=== PATIENT | female | born 1960 | race Caucasian/White ===

== ENCOUNTER 2018-01-05 22:54 | Inpatient (IN) | payer MEDICARE, MEDICAID ==
[~2018-01-05] VITALS: Ht 172.7 cm; Wt 100.0 kg
[2018-01-05] MEDS ORDERED: piperacillin/tazo 3.375gm/50ml 50 ML IV ONE (23:10)
[2018-01-05] MEDS ORDERED: normal saline 1000ML IV soln IV ONE (23:10)
[2018-01-06 00:33] LABS: INR 1.1 INR; PARTIAL THROMBOPLASTIN TIME 24 SECONDS (22-32); PROTHROMBIN TIME 11.4 SECONDS (9.0-12.0)
[2018-01-06 00:34] LABS: ALANINE AMINOTRANSFERASE 43 U/L (12-78); ALBUMIN 3.1 G/DL (3.4-5.0); ALBUMIN/GLOBULIN RATIO 0.9 (1.1-1.5); ALKALINE PHOSPHATASE 104 IU/L (46-116); ANION GAP 12 (8-16); ASPARTATE AMINO TRANSFERASE 69 U/L (10-37); BILIRUBIN,TOTAL 0.3 MG/DL (0.1-1.0); BLOOD UREA NITROGEN 9 MG/DL (7-18); BUN/CREATININE RATIO 13.2 (6.6-38.0); CALCIUM 7.8 MG/DL (8.5-10.1); CHLORIDE 110 MMOL/L (99-107); CREATININE 0.68 MG/DL (0.40-0.90); GLUCOSE 129 MG/DL (70-104); MAGNESIUM 1.7 MG/DL (1.5-2.4); POTASSIUM 3.4 MMOL/L (3.5-5.1); SODIUM 145 MMOL/L (135-145); TOTAL CARBON DIOXIDE 23.5 MMOL/L (24-32); TOTAL PROTEIN 6.7 G/DL (6.4-8.2); eGFR 90 ML/MIN
[2018-01-06 00:35] LABS: BASOPHILS % (AUTO) 0.3 % (0-1); EOSINOPHILS % (AUTO) 0 % (0-6); HEMATOCRIT 56.6 % (35.0-45.0); LYMPHOCYTES % (AUTO) 7.3 % (21-51); MEAN CORPUSCULAR HEMOGLOBIN 30.8 PG (27.0-31.0); MEAN CORPUSCULAR HGB CONC 32.6 % (33.0-36.5); MEAN CORPUSCULAR VOLUME 94.6 FL (78-98); MEAN PLATELET VOLUME 10.2 FL (7.4-10.4); MONOCYTES # (AUTO) 0.2 X10'3 (0-0.9); MONOCYTES % (AUTO) 1.4 % (2-12); NEUTROPHILS # (AUTO) 12.6 X10'3 (1.8-7.7); PLATELET COUNT 197 X10'3 (140-440); RED BLOOD COUNT 5.99 X10'6 (4.20-5.60); RED CELL DISTRIBUTION WIDTH 15.3 % (11.5-14.5); WHITE BLOOD COUNT 13.8 X10'3 (4.5-11.0)
[2018-01-06 00:39] LABS: HEMOGLOBIN 18.5 g/dl (12.0-16.0)
[2018-01-06 01:43] LABS: CLARITY,URINE CLEAR (Clear); COLOR,URINE YELLOW (Yellow); GLUCOSE, URINE NEGATIVE (Neg); KETONES,URINE 40 mg/dl (Neg); LEUKOCYTE ESTERASE ,URINE SMALL (Neg); NITRITES, URINE NEGATIVE (Neg); OCCULT BLOOD,URINE LARGE (Neg); PROTEIN,URINE NEGATIVE (Neg); UROBILINOGEN,URINE 0.2 E.U/dL (0.2-1.0)
[2018-01-06 01:45] LABS: URINE HCG NEGATIVE (NEG)
[2018-01-06 01:52] LABS: UA COLLECTION TYPE FOLEY CATH
[2018-01-06 01:54] LABS: BACTERIA,URINE NONE SEEN /HPF (Neg); HYALINE CASTS 0-3 /LPF (NEGATIVE); MUCUS STRANDS NONE SEEN /LPF (Neg); RBC,URINE 50-100 /HPF (0-2); SQUAMOUS EPITHELIAL CELL,UR NONE SEEN /LPF (FEW); WBC,URINE 20-30 /HPF (0-4)
[2018-01-06] MEDS ORDERED: ASPI-1265 PO (02:51)
[2018-01-06] MEDS: normal saline 1000ml 1,000 ML IV SCH ×3 (03:00→23:21)
[2018-01-06] MEDS ORDERED: CITA-278 PO (03:15)
[2018-01-06] MEDS ORDERED: DIPH25CA83 PO (03:15)
[2018-01-06] MEDS ORDERED: MONT10TA21 PO (03:15)
[2018-01-06] MEDS ORDERED: HYDR-565 PO (03:15)
[2018-01-06] MEDS ORDERED: MULT1TAB74 PO (03:15)
[2018-01-06] MEDS ORDERED: POTA10CA44 PO (03:15)
[2018-01-06] MEDS ORDERED: FURO-150 PO (03:15)
[2018-01-06] MEDS ORDERED: ROSU20TA PO (03:15)
[2018-01-06] MEDS ORDERED: VITA400C65 (03:15)
[2018-01-06] MEDS ORDERED: MAGN296S50 PO (03:15)
[2018-01-06] MEDS ORDERED: OXYB5TAB11 PO (03:15)
[2018-01-06] MEDS ORDERED: ZIPR80CA2 PO (03:15)
[2018-01-06] MEDS ORDERED: BENZ1TAB7 PO (03:15)
[2018-01-06] MEDS ORDERED: POTA10TA10 PO (03:15)
[2018-01-06] MEDS ORDERED: CHOL100046 PO (03:15)
[2018-01-06] MEDS ORDERED: magnesium hydroxide 30ml (MOM) UD suspension PO PRN (03:25)
[2018-01-06] MEDS ORDERED: acetaminophen 325mg tablet PO PRN (03:25)
[2018-01-06] MEDS ORDERED: ondansetron/PF 4mg/2ml inj IV PRN (03:25)
[2018-01-06] MEDS ORDERED: mag hydrox/Alum hydrox/simeth 30ml oral suspension PO PRN (03:25)
[2018-01-06] MEDS ORDERED: HYDROcodone/acetaminophen 10/325mg tab PO PRN (03:30)
[2018-01-06 04:40] VITALS: BP 142/75
[2018-01-06] MEDS: aspirin 81mg tab.chew PO SCH (07:34)
[2018-01-06] MEDS: citalopram 20mg tablet PO SCH (07:34)
[2018-01-06] MEDS: montelukast 10mg tablet PO SCH (07:34)
[2018-01-06] MEDS: heparin, porcine 5000 units/ml vial SQ SCH ×2 (07:37→21:51)
[2018-01-06] MEDS ORDERED: ziprasidone 20mg capsule PO SCH (08:00)
[2018-01-06 08:09] VITALS: BP 137/68
[2018-01-06] MEDS ORDERED: potassium Cl 40MEQ/NS 500ml 500 ML IV PRN ×2 (08:30)
[2018-01-06] MEDS ORDERED: potassium Cl 20 mEq SR tablet PO PRN (08:30)
[2018-01-06] MEDS: potassium Cl 20 mEq SR tablet PO PRN ×3 (08:40→17:44)
[2018-01-06 10:03] LABS: BASOPHILS % (AUTO) 0 % (0-1); EOSINOPHILS % (AUTO) 0 % (0-6); HEMATOCRIT 51.5 % (35.0-45.0); HEMOGLOBIN 17.1 g/dl (12.0-16.0); LYMPHOCYTES # (AUTO) 1.3 X10'3 (1.1-4.8); LYMPHOCYTES % (AUTO) 10.1 % (21-51); MEAN CORPUSCULAR HGB CONC 33.3 % (33.0-36.5); MEAN CORPUSCULAR VOLUME 93.1 FL (78-98); MEAN PLATELET VOLUME 9.1 FL (7.4-10.4); MONOCYTES # (AUTO) 0.1 X10'3 (0-0.9); MONOCYTES % (AUTO) 0.4 % (2-12); NEUTROPHILS # (AUTO) 11.1 X10'3 (1.8-7.7); NEUTROPHILS % (AUTO) 89.5 % (42-75); PLATELET COUNT 187 X10'3 (140-440); RED BLOOD COUNT 5.53 X10'6 (4.20-5.60); RED CELL DISTRIBUTION WIDTH 15.6 % (11.5-14.5); WHITE BLOOD COUNT 12.4 X10'3 (4.5-11.0)
[2018-01-06 11:53] VITALS: BP 140/69
[2018-01-06] MEDS: CefTRIAXone/D5W-Rocephin 1gm 50 ML IV SCH (17:51)
[2018-01-06 20:00] VITALS: BP 144/74
[2018-01-06] MEDS: ziprasidone 20mg capsule PO SCH (21:30)
[2018-01-07] VITALS: BP 134/78
[2018-01-07 05:20] LABS: BASOPHILS % (AUTO) 0 % (0-1); EOSINOPHILS % (AUTO) 0 % (0-6); HEMATOCRIT 53.7 % (35.0-45.0); LYMPHOCYTES # (AUTO) 1.6 X10'3 (1.1-4.8); LYMPHOCYTES % (AUTO) 11.3 % (21-51); MEAN CORPUSCULAR HEMOGLOBIN 31.2 PG (27.0-31.0); MEAN CORPUSCULAR HGB CONC 33.5 % (33.0-36.5); MEAN CORPUSCULAR VOLUME 93.2 FL (78-98); MEAN PLATELET VOLUME 9.4 FL (7.4-10.4); MONOCYTES # (AUTO) 0.5 X10'3 (0-0.9); MONOCYTES % (AUTO) 3.5 % (2-12); NEUTROPHILS # (AUTO) 11.8 X10'3 (1.8-7.7); NEUTROPHILS % (AUTO) 85.2 % (42-75); PLATELET COUNT 194 X10'3 (140-440); RED BLOOD COUNT 5.77 X10'6 (4.20-5.60); RED CELL DISTRIBUTION WIDTH 15.6 % (11.5-14.5); WHITE BLOOD COUNT 13.8 X10'3 (4.5-11.0)
[2018-01-07 05:35] LABS: ALANINE AMINOTRANSFERASE 36 U/L (12-78); ALBUMIN/GLOBULIN RATIO 0.8 (1.1-1.5); ALKALINE PHOSPHATASE 92 IU/L (46-116); ANION GAP 14 (8-16); ASPARTATE AMINO TRANSFERASE 27 U/L (10-37); BILIRUBIN,TOTAL 0.6 MG/DL (0.1-1.0); BLOOD UREA NITROGEN 7 MG/DL (7-18); BUN/CREATININE RATIO 12.7 (6.6-38.0); CALCIUM 8.6 MG/DL (8.5-10.1); CHLORIDE 105 MMOL/L (99-107); CREATININE 0.55 MG/DL (0.40-0.90); GLUCOSE 79 MG/DL (70-104); MAGNESIUM 1.8 MG/DL (1.5-2.4); POTASSIUM 3.3 MMOL/L (3.5-5.1); SODIUM 140 MMOL/L (135-145); TOTAL CARBON DIOXIDE 21.4 MMOL/L (24-32); TOTAL PROTEIN 6.7 G/DL (6.4-8.2); eGFR > 90 ML/MIN
[2018-01-07 07:52] VITALS: BP 136/69
[2018-01-07] MEDS: ziprasidone 20mg capsule PO SCH ×2 (08:00→20:00)
[2018-01-07] MEDS: CefTRIAXone/D5W-Rocephin 1gm 50 ML IV SCH (08:02)
[2018-01-07] MEDS: montelukast 10mg tablet PO SCH (08:03)
[2018-01-07] MEDS: normal saline 1000ml 1,000 ML IV SCH ×3 (08:03→21:05)
[2018-01-07] MEDS: citalopram 20mg tablet PO SCH (08:03)
[2018-01-07] MEDS: aspirin 81mg tab.chew PO SCH (08:03)
[2018-01-07] MEDS: heparin, porcine 5000 units/ml vial SQ SCH ×2 (08:07→21:03)
[2018-01-07] MEDS ORDERED: normal saline 1000ml 1,000 ML IV ONE (09:00)
[2018-01-07] MEDS: potassium Cl 20 mEq SR tablet PO PRN ×3 (11:27→21:00)
[2018-01-07 11:30] VITALS: BP 113/78
[2018-01-07 13:11] LABS: BASOPHILS % (AUTO) 0.2 % (0-1); EOSINOPHILS % (AUTO) 0 % (0-6); HEMATOCRIT 52.1 % (35.0-45.0); HEMOGLOBIN 17.6 g/dl (12.0-16.0); LYMPHOCYTES # (AUTO) 1.3 X10'3 (1.1-4.8); LYMPHOCYTES % (AUTO) 9.6 % (21-51); MEAN CORPUSCULAR HEMOGLOBIN 31.4 PG (27.0-31.0); MEAN CORPUSCULAR HGB CONC 33.7 % (33.0-36.5); MEAN PLATELET VOLUME 9.8 FL (7.4-10.4); MONOCYTES # (AUTO) 0.5 X10'3 (0-0.9); MONOCYTES % (AUTO) 3.8 % (2-12); NEUTROPHILS # (AUTO) 11.7 X10'3 (1.8-7.7); NEUTROPHILS % (AUTO) 86.4 % (42-75); PLATELET COUNT 200 X10'3 (140-440); RED CELL DISTRIBUTION WIDTH 15.4 % (11.5-14.5); WHITE BLOOD COUNT 13.6 X10'3 (4.5-11.0)
[2018-01-07 20:00] VITALS: BP 134/76
[2018-01-07] MEDS: lactobacillus rhamnosus 10,000 MMU CELLS/CAPSULE PO SCH (21:00)
[2018-01-08] VITALS: BP 133/68
[2018-01-08 05:05] LABS: BASOPHILS % (AUTO) 0.2 % (0-1); EOSINOPHILS % (AUTO) 0.4 % (0-6); HEMATOCRIT 49.9 % (35.0-45.0); HEMOGLOBIN 16.7 g/dl (12.0-16.0); LYMPHOCYTES # (AUTO) 1.7 X10'3 (1.1-4.8); LYMPHOCYTES % (AUTO) 17.8 % (21-51); MEAN CORPUSCULAR HEMOGLOBIN 31.1 PG (27.0-31.0); MEAN CORPUSCULAR HGB CONC 33.4 % (33.0-36.5); MEAN CORPUSCULAR VOLUME 93.1 FL (78-98); MEAN PLATELET VOLUME 9.3 FL (7.4-10.4); MONOCYTES # (AUTO) 0.5 X10'3 (0-0.9); MONOCYTES % (AUTO) 4.9 % (2-12); NEUTROPHILS # (AUTO) 7.2 X10'3 (1.8-7.7); NEUTROPHILS % (AUTO) 76.7 % (42-75); PLATELET COUNT 186 X10'3 (140-440); RED BLOOD COUNT 5.36 X10'6 (4.20-5.60); RED CELL DISTRIBUTION WIDTH 15.3 % (11.5-14.5); WHITE BLOOD COUNT 9.4 X10'3 (4.5-11.0)
[2018-01-08 05:17] LABS: ALANINE AMINOTRANSFERASE 32 U/L (12-78); ALBUMIN 2.7 G/DL (3.4-5.0); ALBUMIN/GLOBULIN RATIO 0.8 (1.1-1.5); ALKALINE PHOSPHATASE 79 IU/L (46-116); ANION GAP 9 (8-16); ASPARTATE AMINO TRANSFERASE 25 U/L (10-37); BILIRUBIN,TOTAL 0.5 MG/DL (0.1-1.0); BLOOD UREA NITROGEN 6 MG/DL (7-18); BUN/CREATININE RATIO 13.6 (6.6-38.0); CALCIUM 8.6 MG/DL (8.5-10.1); CHLORIDE 106 MMOL/L (99-107); CREATININE 0.44 MG/DL (0.40-0.90); GLUCOSE 105 MG/DL (70-104); MAGNESIUM 1.8 MG/DL (1.5-2.4); POTASSIUM 3.6 MMOL/L (3.5-5.1); SODIUM 140 MMOL/L (135-145); TOTAL CARBON DIOXIDE 25.4 MMOL/L (24-32); TOTAL PROTEIN 6.2 G/DL (6.4-8.2); eGFR > 90 ML/MIN
[2018-01-08] MEDS: normal saline 1000ml 1,000 ML IV SCH (06:46)
[2018-01-08 07:27] VITALS: BP 154/82
[2018-01-08] MEDS: CefTRIAXone/D5W-Rocephin 1gm 50 ML IV SCH (08:12)
[2018-01-08] MEDS: aspirin 81mg tab.chew PO SCH (08:14)
[2018-01-08] MEDS: montelukast 10mg tablet PO SCH (08:14)
[2018-01-08] MEDS: citalopram 20mg tablet PO SCH (08:14)
[2018-01-08] MEDS: lactobacillus rhamnosus 10,000 MMU CELLS/CAPSULE PO SCH (08:14)
[2018-01-08] MEDS: ziprasidone 20mg capsule PO SCH (08:14)
[2018-01-08] MEDS: heparin, porcine 5000 units/ml vial SQ SCH (08:15)
[2018-01-08 11:20] VITALS: BP 133/74
[2018-01-08] MEDS ORDERED: LEVO500T2 PO (13:36)
[2018-01-08] MEDS ORDERED: ASEN2.5T SL (15:50)
[2018-01-08] MEDS ORDERED: TRAZ300T2 PO (15:50)
[2018-01-08] MEDS ORDERED: BACL20TA PO (15:50)
[2018-01-08] MEDS ORDERED: VENL37.586 PO (15:50)
== END 2018-01-08 16:00 | DRG 640 ==
LOC: ER 22:54 → ED HOLD 01-06 03:21 → SUR 3N 01-06 04:15 → CMPBEDREQ 01-06 05:00
PROVIDERS: ADMIT Internal Medicine; ATTEND Internal Medicine
DX: E86.0 Dehydration (principal); G93.41 Metabolic encephalopathy; N39.0 Urinary tract infection, site not specified; M62.82 Rhabdomyolysis; F22 Delusional disorders; I48.91 Unspecified atrial fibrillation; T50.905A Adverse effect of unspecified drugs, medicaments and biological substances, initial encounter; T14.91XA Suicide attempt, initial encounter; F28 Other psychotic disorder not due to a substance or known physiological condition; F17.200 Nicotine dependence, unspecified, uncomplicated; Z88.5 Allergy status to narcotic agent; Z79.82 Long term (current) use of aspirin; Z79.899 Other long term (current) drug therapy; X83.8XXA Intentional self-harm by other specified means, initial encounter; Y92.89 Other specified places as the place of occurrence of the external cause; Y99.8 Other external cause status
CPT/HCPCS: 36415; 71045; 80053; 81001; 81025; 82140; 82668; 83605; 83735; 84145; 85025; 85610; 85730; 87040; 87070; 87088; 97116; 97161; A6449; J0696; J1644; J2543; J7030

== ENCOUNTER 2018-01-08 13:45 | Inpatient (IN) | payer MEDICARE, MEDICAID ==
[~2018-01-08] VITALS: Ht 170.2 cm; Wt 91.7 kg
[~2018-01-08 13:45] MED LIST: ASPI-1265 PO; BENZ1TAB7 PO; CHOL100046 PO; CITA-278 PO; DIPH25CA83 PO; FURO-150 PO; HYDR-565 PO; LEVO500T2 PO; MAGN296S50 PO; MONT10TA21 PO; MULT1TAB74 PO; OXYB5TAB11 PO; POTA10CA44 PO; POTA10TA10 PO; ROSU20TA PO; VITA400C65; ZIPR80CA2 PO
[2018-01-08] MEDS ORDERED: ASEN2.5T SL (15:50)
[2018-01-08] MEDS ORDERED: BACL20TA PO (15:50)
[2018-01-08] MEDS ORDERED: VENL37.586 PO (15:50)
[2018-01-08] MEDS ORDERED: TRAZ300T2 PO (15:50)
[2018-01-08] MEDS ORDERED: diphenhydrAMINE 25mg capsule PO PRN (16:20)
[2018-01-08] MEDS ORDERED: HYDROcodone/acetaminophen 10/325mg tab PO PRN (16:20)
[2018-01-08] MEDS ORDERED: baclofen 10mg tablet PO PRN (16:20)
[2018-01-08] MEDS ORDERED: magnesium hydroxide 30ml (MOM) UD suspension PO PRN (16:40)
[2018-01-08] MEDS ORDERED: mag hydrox/Alum hydrox/simeth 30ml oral suspension PO PRN (16:40)
[2018-01-08 16:57] VITALS: BP 138/71
[2018-01-08 19:00] VITALS: BP 143/79
[2018-01-08] MEDS ORDERED: ziprasidone 20mg capsule PO SCH (20:00)
[2018-01-08] MEDS: ziprasidone 20mg capsule PO SCH (20:00)
[2018-01-08] MEDS ORDERED: benztropine 1mg tablet PO SCH (20:00)
[2018-01-08] MEDS ORDERED: ASENAPINE MALEATE 2.5 MG SL SCH (20:00)
[2018-01-08] MEDS ORDERED: oxybutynin 5mg tablet PO SCH (20:00)
[2018-01-08] MEDS: lactobacillus rhamnosus 10,000 MMU CELLS/CAPSULE PO SCH (20:51)
[2018-01-08] MEDS ORDERED: traZODone 150mg tablet PO SCH (21:00)
[2018-01-08] MEDS: traZODone 150mg tablet PO PRN (22:45)
[2018-01-09 07:15] LABS: HEMOGLOBIN A1C 5.5 % (4.5-6.2)
[2018-01-09 07:34] LABS: CHOL/HDL RATIO 3.1 (0.00-4.99); CHOLESTEROL 110 MG/DL (0-200); HDL CHOLESTEROL 35 MG/DL (35-60); LDL CHOLESTEROL 56 MG/DL (50-100); TRIGLYCERIDES 102 MG/DL (20-135)
[2018-01-09 08:00] VITALS: BP 149/97
[2018-01-09] MEDS ORDERED: multivitamins, therapeutics tablet PO SCH (08:00)
[2018-01-09] MEDS ORDERED: atorvastatin 20mg tablet PO SCH (08:00)
[2018-01-09] MEDS ORDERED: citalopram 20mg tablet PO SCH (08:00)
[2018-01-09] MEDS ORDERED: vitamin D (cholecalciferol) 1,000 unit tablet PO SCH (08:00)
[2018-01-09] MEDS ORDERED: venlafaxine 37.5mg tablet PO SCH (08:00)
[2018-01-09] MEDS: lactobacillus rhamnosus 10,000 MMU CELLS/CAPSULE PO SCH ×2 (08:21→21:08)
[2018-01-09] MEDS: montelukast 10mg tablet PO SCH (08:21)
[2018-01-09] MEDS: ziprasidone 20mg capsule PO SCH ×2 (08:21→21:08)
[2018-01-09] MEDS: aspirin 81mg tab.chew PO SCH (08:22)
[2018-01-09 09:17] LABS: BASOPHILS % (AUTO) 0.3 % (0-1); EOSINOPHILS # (AUTO) 0.1 X10'3 (0-0.9); EOSINOPHILS % (AUTO) 0.6 % (0-6); HEMATOCRIT 48.9 % (35.0-45.0); HEMOGLOBIN 16.6 g/dl (12.0-16.0); LYMPHOCYTES # (AUTO) 1.5 X10'3 (1.1-4.8); LYMPHOCYTES % (AUTO) 17.9 % (21-51); MEAN CORPUSCULAR HEMOGLOBIN 31.7 PG (27.0-31.0); MEAN CORPUSCULAR HGB CONC 33.9 % (33.0-36.5); MEAN CORPUSCULAR VOLUME 93.5 FL (78-98); MEAN PLATELET VOLUME 9.9 FL (7.4-10.4); MONOCYTES # (AUTO) 0.4 X10'3 (0-0.9); MONOCYTES % (AUTO) 4.4 % (2-12); NEUTROPHILS # (AUTO) 6.4 X10'3 (1.8-7.7); NEUTROPHILS % (AUTO) 76.8 % (42-75); PLATELET COUNT 179 X10'3 (140-440); RED BLOOD COUNT 5.23 X10'6 (4.20-5.60); RED CELL DISTRIBUTION WIDTH 15.6 % (11.5-14.5); WHITE BLOOD COUNT 8.4 X10'3 (4.5-11.0)
[2018-01-09] MEDS: levoFLOXACIN 500mg tablet PO SCH (12:48)
[2018-01-09 19:46] VITALS: BP 146/73
[2018-01-09] MEDS: traZODone 150mg tablet PO PRN (21:07)
[2018-01-10] MEDS: montelukast 10mg tablet PO SCH (07:50)
[2018-01-10] MEDS: ziprasidone 20mg capsule PO SCH (07:50)
[2018-01-10] MEDS: venlafaxine XR 75mg capsule (Q24H) PO SCH (07:50)
[2018-01-10] MEDS: lactobacillus rhamnosus 10,000 MMU CELLS/CAPSULE PO SCH ×2 (07:50→20:44)
[2018-01-10] MEDS: aspirin 81mg tab.chew PO SCH (07:50)
[2018-01-10 08:00] VITALS: BP 133/76
[2018-01-10] MEDS: levoFLOXACIN 500mg tablet PO SCH (11:39)
[2018-01-10 19:32] VITALS: BP 113/64
[2018-01-10] MEDS: traZODone 150mg tablet PO PRN (20:45)
[2018-01-11 08:00] VITALS: BP 137/59
[2018-01-11] MEDS: aspirin 81mg tab.chew PO SCH (08:12)
[2018-01-11] MEDS: montelukast 10mg tablet PO SCH (08:12)
[2018-01-11] MEDS: lactobacillus rhamnosus 10,000 MMU CELLS/CAPSULE PO SCH ×2 (08:12→21:14)
[2018-01-11] MEDS: venlafaxine XR 75mg capsule (Q24H) PO SCH (08:12)
[2018-01-11] MEDS: levoFLOXACIN 500mg tablet PO SCH (12:14)
[2018-01-11 20:35] VITALS: BP 134/74
[2018-01-11] MEDS: traZODone 150mg tablet PO PRN (21:13)
[2018-01-12 07:51] VITALS: BP 120/71
[2018-01-12] MEDS: venlafaxine XR 75mg capsule (Q24H) PO SCH (08:03)
[2018-01-12] MEDS: montelukast 10mg tablet PO SCH (08:03)
[2018-01-12] MEDS: aspirin 81mg tab.chew PO SCH (08:03)
[2018-01-12] MEDS: lactobacillus rhamnosus 10,000 MMU CELLS/CAPSULE PO SCH ×2 (08:03→20:47)
[2018-01-12] MEDS: levoFLOXACIN 500mg tablet PO SCH (10:42)
[2018-01-12] MEDS ORDERED: hydrOXYzine 25 MG tablet PO PRN (19:25)
[2018-01-12 19:54] VITALS: BP 127/73
[2018-01-12] MEDS: traZODone 150mg tablet PO PRN (20:47)
[2018-01-13 08:00] VITALS: BP 134/78
[2018-01-13] MEDS ORDERED: non-formulary drug (invega 1.5 MG) PO SCH (08:00)
[2018-01-13] MEDS: venlafaxine XR 75mg capsule (Q24H) PO SCH (08:13)
[2018-01-13] MEDS: montelukast 10mg tablet PO SCH (08:13)
[2018-01-13] MEDS: hydrOXYzine 25 MG tablet PO PRN ×2 (08:14→17:02)
[2018-01-13] MEDS: lactobacillus rhamnosus 10,000 MMU CELLS/CAPSULE PO SCH ×2 (08:14→20:00)
[2018-01-13] MEDS: paliperidone 1.5mg ER tablet PO SCH (08:14)
[2018-01-13] MEDS: aspirin 81mg tab.chew PO SCH (08:14)
[2018-01-13] MEDS: levoFLOXACIN 500mg tablet PO SCH (11:58)
[2018-01-13 19:00] VITALS: BP 118/77
[2018-01-13] MEDS: traZODone 150mg tablet PO PRN (21:31)
[2018-01-14] MEDS: acetaminophen 325mg tablet PO PRN (02:10)
[2018-01-14 08:00] VITALS: BP 109/80
[2018-01-14] MEDS: aspirin 81mg tab.chew PO SCH (09:00)
[2018-01-14] MEDS: montelukast 10mg tablet PO SCH (09:01)
[2018-01-14] MEDS: paliperidone 1.5mg ER tablet PO SCH (09:01)
[2018-01-14] MEDS: lactobacillus rhamnosus 10,000 MMU CELLS/CAPSULE PO SCH ×2 (09:01→19:58)
[2018-01-14] MEDS: venlafaxine XR 75mg capsule (Q24H) PO SCH (09:01)
[2018-01-14] MEDS: levoFLOXACIN 500mg tablet PO SCH (12:32)
[2018-01-14] MEDS: hydrOXYzine 25 MG tablet PO PRN ×2 (12:34→18:48)
[2018-01-14] MEDS ORDERED: paliperidone 1.5mg ER tablet PO ONE (15:20)
[2018-01-14 19:54] VITALS: BP 105/71
[2018-01-14] MEDS: traZODone 150mg tablet PO PRN (19:58)
[2018-01-15] MEDS: acetaminophen 325mg tablet PO PRN (00:57)
[2018-01-15 08:00] VITALS: BP 118/58
[2018-01-15] MEDS: aspirin 81mg tab.chew PO SCH (08:00)
[2018-01-15] MEDS: lactobacillus rhamnosus 10,000 MMU CELLS/CAPSULE PO SCH ×2 (08:00→20:54)
[2018-01-15] MEDS ORDERED: PALIPERIDONE 3 MG TAB.ER.24 PO SCH (08:00)
[2018-01-15] MEDS: montelukast 10mg tablet PO SCH (08:00)
[2018-01-15] MEDS: venlafaxine XR 75mg capsule (Q24H) PO SCH (08:01)
[2018-01-15] MEDS: hydrOXYzine 25 MG tablet PO PRN (11:08)
[2018-01-15] MEDS: levoFLOXACIN 500mg tablet PO SCH (13:44)
[2018-01-15] MEDS: LORazepam 0.5 MG tablet PO PRN (19:01)
[2018-01-15 19:18] VITALS: BP 143/65
[2018-01-15] MEDS: traZODone 150mg tablet PO PRN (20:54)
[2018-01-16 08:00] VITALS: BP 112/70
[2018-01-16] MEDS ORDERED: PALIPERIDONE 3 MG TAB.ER.24 PO SCH (08:00)
[2018-01-16] MEDS: venlafaxine XR 75mg capsule (Q24H) PO SCH (08:13)
[2018-01-16] MEDS: montelukast 10mg tablet PO SCH (08:14)
[2018-01-16] MEDS: LORazepam 0.5 MG tablet PO SCH ×2 (08:14→20:25)
[2018-01-16] MEDS: aspirin 81mg tab.chew PO SCH (08:14)
[2018-01-16] MEDS: lactobacillus rhamnosus 10,000 MMU CELLS/CAPSULE PO SCH ×2 (08:17→20:25)
[2018-01-16 10:16] LABS: BASOPHILS % (AUTO) 0.1 % (0-1); EOSINOPHILS % (AUTO) 0.4 % (0-6); HEMATOCRIT 58.7 % (35.0-45.0); LYMPHOCYTES # (AUTO) 1.8 X10'3 (1.1-4.8); MEAN CORPUSCULAR HEMOGLOBIN 31.2 PG (27.0-31.0); MEAN CORPUSCULAR HGB CONC 33.1 % (33.0-36.5); MEAN CORPUSCULAR VOLUME 94.2 FL (78-98); MEAN PLATELET VOLUME 8.8 FL (7.4-10.4); MONOCYTES # (AUTO) 0.1 X10'3 (0-0.9); MONOCYTES % (AUTO) 1.1 % (2-12); NEUTROPHILS # (AUTO) 8.7 X10'3 (1.8-7.7); NEUTROPHILS % (AUTO) 81.4 % (42-75); PLATELET COUNT 272 X10'3 (140-440); RED BLOOD COUNT 6.23 X10'6 (4.20-5.60); RED CELL DISTRIBUTION WIDTH 14.7 % (11.5-14.5); WHITE BLOOD COUNT 10.7 X10'3 (4.5-11.0)
[2018-01-16] MEDS: acetaminophen 325mg tablet PO PRN (10:20)
[2018-01-16] MEDS: levoFLOXACIN 500mg tablet PO SCH (10:20)
[2018-01-16 10:33] LABS: ALANINE AMINOTRANSFERASE 25 U/L (12-78); ALBUMIN 3.4 G/DL (3.4-5.0); ALBUMIN/GLOBULIN RATIO 0.9 (1.1-1.5); ALKALINE PHOSPHATASE 86 IU/L (46-116); ANION GAP 5 (8-16); ASPARTATE AMINO TRANSFERASE 18 U/L (10-37); BILIRUBIN,TOTAL 0.4 MG/DL (0.1-1.0); BLOOD UREA NITROGEN 20 MG/DL (7-18); CALCIUM 9.8 MG/DL (8.5-10.1); CHLORIDE 101 MMOL/L (99-107); GLUCOSE 144 MG/DL (70-104); SODIUM 136 MMOL/L (135-145); TOTAL PROTEIN 7.2 G/DL (6.4-8.2); eGFR 74 ML/MIN
[2018-01-16 10:34] LABS: POTASSIUM 4.7 MMOL/L (3.5-5.1)
[2018-01-16 10:38] LABS: HEMOGLOBIN 19.5 g/dl (12.0-16.0)
[2018-01-16] MEDS ORDERED: normal saline 1000ml 1,000 ML IVB ONE (11:03)
[2018-01-16] MEDS ORDERED: heparin, porcine 5000 units/ml vial SQ ONE (11:20)
[2018-01-16 11:32] LABS: RED BLOOD COUNT 6.36 X10'6 (4.20-5.60)
[2018-01-16 11:47] LABS: D-DIMER 0.58 MG/L FEU (0-0.50)
[2018-01-16 11:54] LABS: CREATINE KINASE 33 U/L (26-192); LIPASE 250 U/L (73-393)
[2018-01-16 11:57] LABS: TROPONIN I < 0.04 NG/ML (0.0-0.05)
[2018-01-16 12:02] LABS: UA COLLECTION TYPE CLN CATCH MIDSTREAM
[2018-01-16 12:03] LABS: CLARITY,URINE CLEAR (Clear); COLOR,URINE YELLOW (Yellow); GLUCOSE, URINE NEGATIVE (Neg); KETONES,URINE NEGATIVE (Neg); LEUKOCYTE ESTERASE ,URINE NEGATIVE (Neg); NITRITES, URINE NEGATIVE (Neg); OCCULT BLOOD,URINE NEGATIVE (Neg); PROTEIN,URINE NEGATIVE (Neg); UROBILINOGEN,URINE 0.2 E.U/dL (0.2-1.0)
[2018-01-16 13:00] VITALS: BP 102/63
[2018-01-16] MEDS: dextrose 5%-water 1,000 ML IV SCH (13:30)
[2018-01-16] MEDS: LORazepam 0.5 MG tablet PO PRN (14:28)
[2018-01-16 19:32] VITALS: BP 107/63
[2018-01-16] MEDS: heparin, porcine 5000 units/ml vial SQ SCH (20:25)
[2018-01-16] MEDS: metoprolol tartrate 25mg tablet PO SCH (20:25)
[2018-01-16] MEDS: traZODone 150mg tablet PO PRN (20:26)
[2018-01-17 08:00] VITALS: BP 119/67
[2018-01-17] MEDS: lactobacillus rhamnosus 10,000 MMU CELLS/CAPSULE PO SCH ×2 (09:04→20:52)
[2018-01-17] MEDS: aspirin 81mg tab.chew PO SCH (09:04)
[2018-01-17] MEDS: metoprolol tartrate 25mg tablet PO SCH ×2 (09:04→20:52)
[2018-01-17] MEDS: pantoprazole 40mg Tablet.DR PO SCH (09:05)
[2018-01-17] MEDS: LORazepam 0.5 MG tablet PO SCH ×2 (09:05→20:52)
[2018-01-17] MEDS: montelukast 10mg tablet PO SCH (09:05)
[2018-01-17] MEDS: venlafaxine XR 75mg capsule (Q24H) PO SCH (09:05)
[2018-01-17] MEDS: heparin, porcine 5000 units/ml vial SQ SCH ×2 (09:07→21:04)
[2018-01-17] MEDS ORDERED: nicotine prolacrilex 2mg gum BC PRN (09:15)
[2018-01-17] MEDS ORDERED: PALIPERIDONE 3 MG TAB.ER.24 PO ONE (09:35)
[2018-01-17] MEDS: dextrose 5%-water 1,000 ML IV SCH ×3 (10:44→19:50)
[2018-01-17] MEDS: levoFLOXACIN 500mg tablet PO SCH (10:48)
[2018-01-17] MEDS ORDERED: nicotine 21mg patch - 24 hr TD ONE (10:55)
[2018-01-17] MEDS: LORazepam 0.5 MG tablet PO PRN ×3 (12:32→18:37)
[2018-01-17 15:06] LABS: BASOPHILS % (AUTO) 0.4 % (0-1); EOSINOPHILS # (AUTO) 0.1 X10'3 (0-0.9); EOSINOPHILS % (AUTO) 0.9 % (0-6); HEMATOCRIT 52.5 % (35.0-45.0); HEMOGLOBIN 17.3 g/dl (12.0-16.0); LYMPHOCYTES # (AUTO) 2.2 X10'3 (1.1-4.8); LYMPHOCYTES % (AUTO) 24.4 % (21-51); MEAN CORPUSCULAR HEMOGLOBIN 31.1 PG (27.0-31.0); MEAN CORPUSCULAR HGB CONC 32.9 % (33.0-36.5); MEAN CORPUSCULAR VOLUME 94.4 FL (78-98); MONOCYTES # (AUTO) 0.4 X10'3 (0-0.9); MONOCYTES % (AUTO) 4.8 % (2-12); NEUTROPHILS # (AUTO) 6.4 X10'3 (1.8-7.7); NEUTROPHILS % (AUTO) 69.5 % (42-75); PLATELET COUNT 259 X10'3 (140-440); RED BLOOD COUNT 5.56 X10'6 (4.20-5.60); WHITE BLOOD COUNT 9.2 X10'3 (4.5-11.0)
[2018-01-17] MEDS: acetaminophen 325mg tablet PO PRN (16:11)
[2018-01-17 19:56] VITALS: BP 104/58
[2018-01-18] MEDS: dextrose 5%-water 1,000 ML IV SCH (05:16)
[2018-01-18 08:00] VITALS: BP 124/68
[2018-01-18] MEDS: PALIPERIDONE 3 MG TAB.ER.24 PO SCH (08:07)
[2018-01-18] MEDS: metoprolol tartrate 25mg tablet PO SCH ×2 (08:07→19:43)
[2018-01-18] MEDS: LORazepam 0.5 MG tablet PO SCH ×2 (08:07→19:44)
[2018-01-18] MEDS: pantoprazole 40mg Tablet.DR PO SCH (08:07)
[2018-01-18] MEDS: lactobacillus rhamnosus 10,000 MMU CELLS/CAPSULE PO SCH ×2 (08:07→19:43)
[2018-01-18] MEDS: montelukast 10mg tablet PO SCH (08:07)
[2018-01-18] MEDS: aspirin 81mg tab.chew PO SCH (08:07)
[2018-01-18] MEDS: venlafaxine XR 75mg capsule (Q24H) PO SCH (08:07)
[2018-01-18] MEDS: heparin, porcine 5000 units/ml vial SQ SCH ×2 (08:09→19:44)
[2018-01-18] MEDS: nicotine 21mg patch - 24 hr TD SCH (08:09)
[2018-01-18 13:50] LABS: ERYTHROPOIETIN, SERUM 1.3 mIU/mL (2.6-18.5)
[2018-01-18] MEDS: LORazepam 0.5 MG tablet PO PRN (15:47)
[2018-01-18] MEDS: traZODone 150mg tablet PO PRN (19:43)
[2018-01-18 19:52] VITALS: BP 116/64
[2018-01-19] MEDS: LORazepam 0.5 MG tablet PO PRN ×3 (04:23→18:58)
[2018-01-19] MEDS: metoprolol tartrate 25mg tablet PO SCH ×2 (08:00→20:51)
[2018-01-19] MEDS: PALIPERIDONE 3 MG TAB.ER.24 PO SCH (08:10)
[2018-01-19] MEDS: lactobacillus rhamnosus 10,000 MMU CELLS/CAPSULE PO SCH ×2 (08:12→20:50)
[2018-01-19] MEDS: venlafaxine XR 75mg capsule (Q24H) PO SCH (08:12)
[2018-01-19] MEDS: LORazepam 0.5 MG tablet PO SCH ×2 (08:13→20:51)
[2018-01-19] MEDS: montelukast 10mg tablet PO SCH (08:13)
[2018-01-19] MEDS: pantoprazole 40mg Tablet.DR PO SCH (08:16)
[2018-01-19 08:46] VITALS: BP 97/61
[2018-01-19] MEDS: aspirin 81mg tab.chew PO SCH (08:50)
[2018-01-19] MEDS: nicotine 21mg patch - 24 hr TD SCH (08:51)
[2018-01-19 08:56] LABS: BASOPHILS % (AUTO) 0.3 % (0-1); EOSINOPHILS # (AUTO) 0.1 X10'3 (0-0.9); EOSINOPHILS % (AUTO) 0.7 % (0-6); HEMATOCRIT 53.5 % (35.0-45.0); HEMOGLOBIN 17.8 g/dl (12.0-16.0); LYMPHOCYTES # (AUTO) 2.6 X10'3 (1.1-4.8); LYMPHOCYTES % (AUTO) 29.3 % (21-51); MEAN CORPUSCULAR HEMOGLOBIN 30.9 PG (27.0-31.0); MEAN CORPUSCULAR HGB CONC 33.3 % (33.0-36.5); MEAN CORPUSCULAR VOLUME 92.8 FL (78-98); MEAN PLATELET VOLUME 8.7 FL (7.4-10.4); MONOCYTES # (AUTO) 0.4 X10'3 (0-0.9); NEUTROPHILS # (AUTO) 5.7 X10'3 (1.8-7.7); NEUTROPHILS % (AUTO) 64.7 % (42-75); PLATELET COUNT 237 X10'3 (140-440); RED BLOOD COUNT 5.77 X10'6 (4.20-5.60); RED CELL DISTRIBUTION WIDTH 14.9 % (11.5-14.5); WHITE BLOOD COUNT 8.8 X10'3 (4.5-11.0)
[2018-01-19] MEDS: heparin, porcine 5000 units/ml vial SQ SCH ×2 (08:56→20:53)
[2018-01-19] MEDS: acetaminophen 325mg tablet PO PRN ×2 (11:21→16:15)
[2018-01-19 19:32] VITALS: BP 112/78
[2018-01-19] MEDS: traZODone 150mg tablet PO PRN (20:53)
[2018-01-20 05:27] LABS: ALDOLASE 6.4 U/L (3.3-10.3)
[2018-01-20] MEDS: pantoprazole 40mg Tablet.DR PO SCH (07:30)
[2018-01-20 08:00] VITALS: BP 110/60
[2018-01-20] MEDS: PALIPERIDONE 3 MG TAB.ER.24 PO SCH (08:33)
[2018-01-20] MEDS: aspirin 81mg tab.chew PO SCH (08:33)
[2018-01-20] MEDS: montelukast 10mg tablet PO SCH (08:33)
[2018-01-20] MEDS: metoprolol tartrate 25mg tablet PO SCH ×2 (08:33→20:35)
[2018-01-20] MEDS: lactobacillus rhamnosus 10,000 MMU CELLS/CAPSULE PO SCH ×2 (08:33→20:35)
[2018-01-20] MEDS: heparin, porcine 5000 units/ml vial SQ SCH (08:33)
[2018-01-20] MEDS: LORazepam 0.5 MG tablet PO SCH ×2 (08:34→19:38)
[2018-01-20] MEDS: nicotine 21mg patch - 24 hr TD SCH (08:34)
[2018-01-20] MEDS: venlafaxine XR 75mg capsule (Q24H) PO SCH (08:34)
[2018-01-20] MEDS: LORazepam 0.5 MG tablet PO PRN (13:41)
[2018-01-20] MEDS: acetaminophen 325mg tablet PO PRN ×2 (14:22→19:39)
[2018-01-20 19:00] VITALS: BP 103/64
[2018-01-20] MEDS: traZODone 150mg tablet PO PRN (20:35)
[2018-01-20 23:20] LABS: BASOPHILS # (AUTO) 0.1 X10'3 (0-0.2); BASOPHILS % (AUTO) 0.9 % (0-1); EOSINOPHILS # (AUTO) 0.1 X10'3 (0-0.9); EOSINOPHILS % (AUTO) 1.4 % (0-6); HEMATOCRIT 50.4 % (35.0-45.0); HEMOGLOBIN 16.5 g/dl (12.0-16.0); LYMPHOCYTES # (AUTO) 3.8 X10'3 (1.1-4.8); LYMPHOCYTES % (AUTO) 41.2 % (21-51); MEAN CORPUSCULAR HEMOGLOBIN 30.8 PG (27.0-31.0); MEAN CORPUSCULAR HGB CONC 32.8 % (33.0-36.5); MEAN CORPUSCULAR VOLUME 94.1 FL (78-98); MEAN PLATELET VOLUME 9.1 FL (7.4-10.4); MONOCYTES # (AUTO) 0.5 X10'3 (0-0.9); MONOCYTES % (AUTO) 5.2 % (2-12); NEUTROPHILS # (AUTO) 4.8 X10'3 (1.8-7.7); NEUTROPHILS % (AUTO) 51.3 % (42-75); PLATELET COUNT 216 X10'3 (140-440); RED BLOOD COUNT 5.35 X10'6 (4.20-5.60); RED CELL DISTRIBUTION WIDTH 13.5 % (11.5-14.5); WHITE BLOOD COUNT 9.3 X10'3 (4.5-11.0)
[2018-01-21] MEDS: pantoprazole 40mg Tablet.DR PO SCH (07:23)
[2018-01-21 07:50] VITALS: BP 106/71
[2018-01-21] MEDS: aspirin 81mg tab.chew PO SCH (07:52)
[2018-01-21] MEDS: metoprolol tartrate 25mg tablet PO SCH ×2 (07:53→21:11)
[2018-01-21] MEDS: lactobacillus rhamnosus 10,000 MMU CELLS/CAPSULE PO SCH ×2 (07:53→21:11)
[2018-01-21] MEDS: nicotine 21mg patch - 24 hr TD SCH (07:53)
[2018-01-21] MEDS: montelukast 10mg tablet PO SCH (07:53)
[2018-01-21] MEDS: venlafaxine XR 75mg capsule (Q24H) PO SCH (07:53)
[2018-01-21] MEDS: PALIPERIDONE 3 MG TAB.ER.24 PO SCH (07:53)
[2018-01-21] MEDS: LORazepam 0.5 MG tablet PO SCH ×2 (07:54→19:28)
[2018-01-21] MEDS: acetaminophen 325mg tablet PO PRN ×3 (08:59→20:05)
[2018-01-21] MEDS: LORazepam 0.5 MG tablet PO PRN (12:55)
[2018-01-21 19:00] VITALS: BP 102/66
[2018-01-21] MEDS: traZODone 150mg tablet PO PRN (21:12)
[2018-01-22] MEDS: montelukast 10mg tablet PO SCH (07:53)
[2018-01-22] MEDS: lactobacillus rhamnosus 10,000 MMU CELLS/CAPSULE PO SCH ×2 (07:53→20:50)
[2018-01-22] MEDS: metoprolol tartrate 25mg tablet PO SCH ×2 (07:53→20:50)
[2018-01-22] MEDS: aspirin 81mg tab.chew PO SCH (07:53)
[2018-01-22] MEDS: pantoprazole 40mg Tablet.DR PO SCH (07:53)
[2018-01-22] MEDS: PALIPERIDONE 3 MG TAB.ER.24 PO SCH (07:53)
[2018-01-22] MEDS: venlafaxine XR 75mg capsule (Q24H) PO SCH (07:53)
[2018-01-22] MEDS: nicotine 21mg patch - 24 hr TD SCH (07:54)
[2018-01-22] MEDS: LORazepam 0.5 MG tablet PO SCH ×2 (07:56→20:50)
[2018-01-22 08:00] VITALS: BP 116/70
[2018-01-22] MEDS: acetaminophen 325mg tablet PO PRN ×2 (10:26→17:31)
[2018-01-22] MEDS: LORazepam 0.5 MG tablet PO PRN ×2 (12:28→18:02)
[2018-01-22 19:00] VITALS: BP 101/55
[2018-01-22] MEDS: traZODone 150mg tablet PO PRN ×2 (20:50→20:53)
[2018-01-23] MEDS: nicotine 21mg patch - 24 hr TD SCH (07:30)
[2018-01-23] MEDS: montelukast 10mg tablet PO SCH (07:31)
[2018-01-23] MEDS: venlafaxine XR 75mg capsule (Q24H) PO SCH (07:31)
[2018-01-23] MEDS: LORazepam 0.5 MG tablet PO SCH ×3 (07:32→20:37)
[2018-01-23] MEDS: PALIPERIDONE 3 MG TAB.ER.24 PO SCH (07:33)
[2018-01-23] MEDS: pantoprazole 40mg Tablet.DR PO SCH (07:33)
[2018-01-23] MEDS: metoprolol tartrate 25mg tablet PO SCH ×2 (07:33→20:37)
[2018-01-23] MEDS: aspirin 81mg tab.chew PO SCH (07:34)
[2018-01-23] MEDS: lactobacillus rhamnosus 10,000 MMU CELLS/CAPSULE PO SCH ×2 (07:34→20:37)
[2018-01-23 08:00] VITALS: BP 115/64
[2018-01-23] MEDS: acetaminophen 325mg tablet PO PRN ×2 (09:28→18:39)
[2018-01-23] MEDS: LORazepam 0.5 MG tablet PO PRN ×2 (11:17→17:51)
[2018-01-23 20:20] VITALS: BP 115/64
[2018-01-23] MEDS: traZODone 150mg tablet PO PRN (20:42)
[2018-01-24 07:30] VITALS: BP 104/63
[2018-01-24] MEDS: PALIPERIDONE 3 MG TAB.ER.24 PO SCH (07:30)
[2018-01-24] MEDS: venlafaxine XR 75mg capsule (Q24H) PO SCH (07:30)
[2018-01-24] MEDS: montelukast 10mg tablet PO SCH (07:30)
[2018-01-24] MEDS: aspirin 81mg tab.chew PO SCH (07:30)
[2018-01-24] MEDS: pantoprazole 40mg Tablet.DR PO SCH (07:30)
[2018-01-24] MEDS: lactobacillus rhamnosus 10,000 MMU CELLS/CAPSULE PO SCH (07:30)
[2018-01-24] MEDS: metoprolol tartrate 25mg tablet PO SCH (07:30)
[2018-01-24] MEDS: LORazepam 0.5 MG tablet PO SCH (07:31)
[2018-01-24] MEDS: nicotine 21mg patch - 24 hr TD SCH (07:33)
[2018-01-24] MEDS ORDERED: diphenhydrAMINE 25mg capsule PO PRN (08:30)
[2018-01-24] MEDS: acetaminophen 325mg tablet PO PRN (10:15)
[2018-01-24] MEDS ORDERED: ASPI-1265 PO (10:25)
[2018-01-24] MEDS ORDERED: PALI3TAB5 PO (10:25)
[2018-01-24] MEDS ORDERED: DIPH-423 PO (10:25)
[2018-01-24] MEDS ORDERED: NICO-687 TD (10:25)
[2018-01-24] MEDS ORDERED: TRAZ150T78 PO (10:25)
[2018-01-24] MEDS ORDERED: METO25TA6 PO (10:25)
[2018-01-24] MEDS ORDERED: MONT10TA24 PO (10:25)
[2018-01-24] MEDS ORDERED: ATI0.5T PO (10:25)
[2018-01-24] MEDS ORDERED: PANT40TA4 PO (10:25)
[2018-01-24] MEDS ORDERED: VENL75CA61 PO (10:25)
[2018-01-24] MEDS: LORazepam 0.5 MG tablet PO PRN (13:36)
== END 2018-01-24 17:00 | disposition home or self-care (01) | DRG 885 ==
LOC: ADULT MH 13:45
PROVIDERS: ADMIT Psychiatry & Neurology Psychiatry; ATTEND Psychiatry & Neurology Psychiatry
DX: F33.2 Major depressive disorder, recurrent severe without psychotic features (principal); A41.9 Sepsis, unspecified organism; R45.851 Suicidal ideations; N39.0 Urinary tract infection, site not specified; F25.1 Schizoaffective disorder, depressive type; F43.10 Post-traumatic stress disorder, unspecified; K21.9 Gastro-esophageal reflux disease without esophagitis; I48.91 Unspecified atrial fibrillation; D75.1 Secondary polycythemia; E86.0 Dehydration; F17.210 Nicotine dependence, cigarettes, uncomplicated; Z90.710 Acquired absence of both cervix and uterus; Z88.5 Allergy status to narcotic agent; Z79.899 Other long term (current) drug therapy; Z79.82 Long term (current) use of aspirin; Z81.8 Family history of other mental and behavioral disorders
CPT/HCPCS: 36415; 80053; 80061; 81003; 82085; 82550; 82668; 83036; 83690; 83735; 83880; 84443; 84484; 85025; 85045; 85379; 85651; 87070; 99285; 99406; J1644; J7030; J7070; Q0163; Q0177

== ENCOUNTER 2018-09-19 18:36 | Emergency (ER) | payer MEDICARE, MEDICAID ==
[~2018-09-19] VITALS: Ht 172.7 cm; Wt 98.5 kg
[~2018-09-19 18:36] MED LIST changes: +ATI0.5T PO; -BENZ1TAB7 PO; -CITA-278 PO; +DIPH-423 PO; -DIPH25CA83 PO; -FURO-150 PO; -HYDR-565 PO; -LEVO500T2 PO; -MAGN296S50 PO; +METO25TA6 PO; -MONT10TA21 PO; +MONT10TA24 PO; +NICO-687 TD; -OXYB5TAB11 PO; +PALI3TAB5 PO; +PANT40TA4 PO; -POTA10CA44 PO; -POTA10TA10 PO; -ROSU20TA PO; +TRAZ150T78 PO; +VENL75CA55 PO; +VENL75CA61 PO; -VITA400C65; -ZIPR80CA2 PO
[2018-09-19] MEDS ORDERED: PALI9TAB PO (19:55)
[2018-09-19 20:00] VITALS: BP 134/78
== END 2018-09-19 20:01 | disposition home or self-care (01) ==
LOC: ER 18:36
DX: F20.9 Schizophrenia, unspecified (principal); Z76.0 Encounter for issue of repeat prescription; I11.0 Hypertensive heart disease with heart failure; I50.9 Heart failure, unspecified; J44.9 Chronic obstructive pulmonary disease, unspecified; Z79.82 Long term (current) use of aspirin
CPT/HCPCS: 99283

== ENCOUNTER 2019-06-08 08:48 | Emergency (ER) | payer MEDICAID, MEDICARE ==
[~2019-06-08] VITALS: Ht 170.2 cm; Wt 106.0 kg
[~2019-06-08 08:48] MED LIST changes: +PALI9TAB PO
[2019-06-08 08:53] VITALS: BP 145/82
== END 2019-06-08 10:57 | disposition home or self-care (01) ==
LOC: ER 08:49
DX: S80.01XA Contusion of right knee, initial encounter (principal); I11.0 Hypertensive heart disease with heart failure; I50.9 Heart failure, unspecified; J44.9 Chronic obstructive pulmonary disease, unspecified; Z79.899 Other long term (current) drug therapy; Z79.82 Long term (current) use of aspirin; W18.49XA Other slipping, tripping and stumbling without falling, initial encounter; Y93.89 Activity, other specified; Y92.89 Other specified places as the place of occurrence of the external cause; Y99.9 Unspecified external cause status
CPT/HCPCS: 73564; 99284

== ENCOUNTER 2019-12-13 12:54 | Outpatient (CLI) | payer MEDICARE, MEDICAID ==
[~2019-12-13 12:54] MED LIST changes: -MONT10TA24 PO; +MONT10TA26 PO; +MULT-620 PO; -MULT1TAB74 PO
== END 2019-12-13 23:59 | disposition home or self-care (01) ==
LOC: VAS 12:54
PROVIDERS: ATTEND Nurse Practitioner
DX: S32.040A Wedge compression fracture of fourth lumbar vertebra, initial encounter for closed fracture (principal); R60.9 Edema, unspecified; M25.561 Pain in right knee; X58.XXXA Exposure to other specified factors, initial encounter; Y93.89 Activity, other specified; Y92.89 Other specified places as the place of occurrence of the external cause; Y99.8 Other external cause status
CPT/HCPCS: 72110; 73564; 93971